=== PATIENT | female | born 1955 | race Caucasian/White ===

== ENCOUNTER 2016-11-28 12:01 | Day surgery (SDC) | payer OTHER ==
[~2016-11-28] VITALS: Ht 162.6 cm; Wt 110.0 kg
[~2016-11-28 12:01] MED LIST: ASPI-496 PO; BUPR150T6 PO; DOCU100C8 PO; HYDR-3138 PO; PIOG1TAB8 PO; SCOPOLAMINE PATCH, 1.5MG PATCH.TD72 TD ONE; SIMV20TA3 PO
[2016-11-28 12:48] VITALS: BP 125/72
[2016-11-28] MEDS ORDERED: LACTATED RINGERS 1,000 ML IV SCH (12:51)
[2016-11-28 13:18] LABS: ASPARTATE AMINO TRANSFERASE 16 U/L (15-37); BLOOD UREA NITROGEN 23 mg/dL (7-18)
[2016-11-28] MEDS ORDERED: SCOPOLAMINE PATCH, 1.5MG PATCH.TD72 TD ONE (14:24)
[2016-11-28] MEDS ORDERED: MIDAZOLAM 1 MG/ML, 2ML ONE (14:31)
[2016-11-28] MEDS ORDERED: FENTANYL PF 250 MCG/5ML ONE (14:31)
[2016-11-28] MEDS ORDERED: ONDANSETRON 2MG/ML, 2ML ONE (14:55)
[2016-11-28] MEDS ORDERED: CEFAZOLIN 1,000 MG ONE (14:55)
[2016-11-28] MEDS ORDERED: KETOROLAC 30 MG/1 ML ONE (14:55)
[2016-11-28] MEDS ORDERED: PROPOFOL 10 MG/ML, 50ML ONE (14:55)
[2016-11-28] MEDS ORDERED: BUPIVACAINE/PF-EPI 0.5% 1:200K ONE ×2 (15:02)
[2016-11-28] MEDS ORDERED: ACETAMINOPHEN 325 MG TABLET PO PRN (16:00)
[2016-11-28] MEDS ORDERED: hydrALAzine 20 MG/ML, 1ML IV PRN (16:00)
[2016-11-28] MEDS ORDERED: EPHEDRINE 50 MG/ML, 1ML IVPush PRN (16:00)
[2016-11-28] MEDS ORDERED: LABETALOL 5MG/ML, 20ML IV PRN (16:00)
[2016-11-28] MEDS ORDERED: KETOROLAC 30 MG/1 ML IV PRN (16:00)
[2016-11-28] MEDS ORDERED: OXYcodone 5 MG/5 ML ORAL.SOL UDC PO PRN (16:00)
[2016-11-28] MEDS ORDERED: MIDAZOLAM 1 MG/ML, 2ML IV PRN (16:00)
[2016-11-28] MEDS ORDERED: ONDANSETRON 2MG/ML, 2ML IVPush PRN (16:00)
[2016-11-28] MEDS ORDERED: FENTANYL PF 100 MCG/2ML IV PRN (16:00)
[2016-11-28] MEDS ORDERED: HYDROmorphone 1 MG/ML, 1ML IV PRN (16:00)
[2016-11-28] MEDS ORDERED: HYDROcodone/APAP 7.5-325MG/15ML UDC PO PRN (16:00)
[2016-11-28] MEDS ORDERED: MEPERIDINE/PF 25MG/0.5ML IVPush PRN (16:00)
[2016-11-28] MEDS ORDERED: PROMETHAZINE 25 MG/ML, 1ML IV PRN (16:00)
[2016-11-28] MEDS ORDERED: ACETAMINOPHEN 325 MG TABLET ONE (16:16)
[2016-11-28] MEDS ORDERED: ACETAMINOPHEN 650 MG/20.3 ML UDC ONE (16:16)
[2016-11-28] MEDS ORDERED: OXYcodone 5 MG/5 ML ORAL.SOL UDC ONE (16:17)
== END 2016-11-28 18:15 | disposition home or self-care (01) ==
LOC: OUT 12:01
PROVIDERS: ATTEND Obstetrics & Gynecology Gynecologic Oncology
DX: C51.2 Malignant neoplasm of clitoris (principal); N76.2 Acute vulvitis; E11.9 Type 2 diabetes mellitus without complications; F32.9 Major depressive disorder, single episode, unspecified; E66.9 Obesity, unspecified; Z68.41 Body mass index [BMI] 40.0-44.9, adult; Z79.84 Long term (current) use of oral hypoglycemic drugs; Z79.01 Long term (current) use of anticoagulants
CPT/HCPCS: 36415; 56605; 56606; 71010; 80053; 82962; 85025; 85610; 85730; 86850; 86900; 88304; 93005; C1729; J0690; J1885; J2250; J2405; J2704; J3010

== ENCOUNTER → 2016-12-24 | Outpatient (CLI) | payer OTHER ==
[~2016-12-24] MED LIST changes: +OXYC-223 PO; -SCOPOLAMINE PATCH, 1.5MG PATCH.TD72 TD ONE
[2016-12-24 16:46] LABS: ASPARTATE AMINO TRANSFERASE 15 U/L (15-37); BLOOD UREA NITROGEN 20 mg/dL (7-18)
== END | disposition home or self-care (01) ==
LOC: STAR 15:20
PROVIDERS: ATTEND Specialist
DX: Z01.818 Encounter for other preprocedural examination (principal); R79.1 Abnormal coagulation profile
CPT/HCPCS: 36415; 80053; 85025; 85610; 85730

== ENCOUNTER 2017-01-06 09:08 | Day surgery (SDC) | payer OTHER ==
[2016-12-24 16:09] VITALS: BP 128/64
[~2017-01-06] VITALS: Ht 162.6 cm; Wt 110.0 kg
[~2017-01-06 09:08] MED LIST changes: +BUPIVACAINE/PF 0.25% ONE; +EPINEPHRINE 1 MG/ML, 1ML ONE
[2017-01-06] MEDS ORDERED: LACTATED RINGERS 1,000 ML IV SCH (10:18)
[2017-01-06 10:21] VITALS: BP 128/64
[2017-01-06] MEDS ORDERED: LIDOCAINE 1%, 2ML SQ PRN (10:30)
[2017-01-06] MEDS ORDERED: SCOPOLAMINE PATCH, 1.5MG PATCH.TD72 TD ONE (13:13)
[2017-01-06] MEDS ORDERED: FENTANYL PF 250 MCG/5ML ONE (13:17)
[2017-01-06] MEDS ORDERED: MIDAZOLAM 1 MG/ML, 2ML ONE (13:19)
[2017-01-06] MEDS ORDERED: ONDANSETRON 2MG/ML, 2ML ONE (13:31)
[2017-01-06] MEDS ORDERED: PROPOFOL 10 MG/ML, 20ML ONE (13:31)
[2017-01-06] MEDS ORDERED: EPHEDRINE 50 MG/ML, 1ML IVPush PRN (14:30)
[2017-01-06] MEDS ORDERED: MEPERIDINE/PF 25MG/0.5ML IVPush PRN (14:30)
[2017-01-06] MEDS ORDERED: PROMETHAZINE 25 MG/ML, 1ML IV PRN (14:30)
[2017-01-06] MEDS ORDERED: HYDROcodone/APAP 7.5-325MG/15ML UDC PO PRN (14:30)
[2017-01-06] MEDS ORDERED: MIDAZOLAM 1 MG/ML, 2ML IV PRN (14:30)
[2017-01-06] MEDS ORDERED: ACETAMINOPHEN 325 MG TABLET PO PRN (14:30)
[2017-01-06] MEDS ORDERED: hydrALAzine 20 MG/ML, 1ML IV PRN (14:30)
[2017-01-06] MEDS ORDERED: OXYcodone 5 MG/5 ML ORAL.SOL UDC PO PRN (14:30)
[2017-01-06] MEDS ORDERED: LABETALOL 5MG/ML, 20ML IV PRN (14:30)
[2017-01-06] MEDS ORDERED: KETOROLAC 30 MG/1 ML IV PRN (14:30)
[2017-01-06] MEDS ORDERED: ONDANSETRON 2MG/ML, 2ML IVPush PRN (14:30)
[2017-01-06] MEDS ORDERED: PROMETHAZINE 25 MG/ML, 1ML ONE (14:50)
[2017-01-06] MEDS ORDERED: OXYcodone 5 MG/5 ML ORAL.SOL UDC ONE (14:50)
[2017-01-06] MEDS ORDERED: FENTANYL PF 100 MCG/2ML ONE (14:50)
[2017-01-06] MEDS ORDERED: HYDROmorphone 1 MG/ML, 1ML ONE ×2 (14:50→15:23)
[2017-01-06] MEDS ORDERED: KETOROLAC 30 MG/1 ML ONE (14:51)
[2017-01-06] MEDS: HYDROmorphone 1 MG/ML, 1ML IV PRN ×4 (14:55→15:34)
[2017-01-06] MEDS: FENTANYL PF 100 MCG/2ML IV PRN ×2 (15:08→15:15)
== END 2017-01-06 17:05 ==
LOC: OUT 09:08
PROVIDERS: ATTEND Specialist
DX: C51.2 Malignant neoplasm of clitoris (principal); E11.9 Type 2 diabetes mellitus without complications; F32.9 Major depressive disorder, single episode, unspecified; F41.9 Anxiety disorder, unspecified; E78.5 Hyperlipidemia, unspecified; Z98.890 Other specified postprocedural states; Z85.44 Personal history of malignant neoplasm of other female genital organs; Z79.82 Long term (current) use of aspirin
CPT/HCPCS: 58999; 82962; 88307; C1729; J0171; J1170; J1885; J2250; J2405; J2550; J2704; J3010; J3490; J7120

== ENCOUNTER 2017-01-28 10:56 | Inpatient (IN) | payer OTHER ==
[~2017-01-28] VITALS: Ht 162.6 cm; Wt 103.5 kg
[~2017-01-28 10:56] MED LIST changes: -BUPIVACAINE/PF 0.25% ONE; -EPINEPHRINE 1 MG/ML, 1ML ONE
[2017-01-28 13:45] VITALS: BP 115/69
[2017-01-28] MEDS ORDERED: PLEASE ENTER HEIGHT AND WEIGHT MC SCH (15:00)
[2017-01-28] MEDS: OXYcodone/APAP 7.5/325MG TABLET PO PRN ×2 (15:55→21:49)
[2017-01-28] MEDS ORDERED: CLOBETASOL PROPIONATE CRM 0.05%, 15GM TP PRN (16:00)
[2017-01-28] MEDS ORDERED: NYSTATIN CRM 15GM TP PRN (16:00)
[2017-01-28] MEDS ORDERED: OXYcodone/APAP 7.5/325MG TABLET PO PRN (16:00)
[2017-01-28] MEDS: VANCOMYCIN PMX 1GM/200ML 200 ML IV SCH (17:21)
[2017-01-28] MEDS: metFORMIN 500 MG TABLET PO SCH (17:21)
[2017-01-28 19:34] VITALS: BP 123/75
[2017-01-28] MEDS: SIMVASTATIN 10 MG TABLET PO SCH (20:56)
[2017-01-28] MEDS: CALCIUM ACETATE/ALUMINUM SULF PACKET TP SCH (21:00)
[2017-01-28] MEDS: LIDOCAINE GEL 2%, 5ML TP SCH (21:00)
[2017-01-29 02:17] VITALS: BP 145/70
[2017-01-29] MEDS: OXYcodone/APAP 7.5/325MG TABLET PO PRN ×4 (03:39→20:27)
[2017-01-29] MEDS: VANCOMYCIN PMX 1GM/200ML 200 ML IV SCH ×2 (03:39→15:51)
[2017-01-29] MEDS ORDERED: LIDOCAINE GEL 2%, 5ML ONE (06:51)
[2017-01-29] MEDS ORDERED: SILVER SULF. CRM 1% , 25GM ONE (06:51)
[2017-01-29] MEDS ORDERED: EPINEPHRINE 1 MG/ML, 1ML ONE (06:51)
[2017-01-29] MEDS ORDERED: BUPIVACAINE/PF 0.25% ONE (06:51)
[2017-01-29] MEDS ORDERED: MIDAZOLAM 1 MG/ML, 2ML ONE ×2 (07:18→08:39)
[2017-01-29] MEDS ORDERED: FENTANYL PF 100 MCG/2ML ONE ×2 (07:19→08:30)
[2017-01-29] MEDS ORDERED: SCOPOLAMINE PATCH, 1.5MG PATCH.TD72 TD ONE ×2 (07:25)
[2017-01-29] MEDS ORDERED: ONDANSETRON 2MG/ML, 2ML ONE (07:32)
[2017-01-29] MEDS ORDERED: PROPOFOL 10 MG/ML, 20ML ONE (07:32)
[2017-01-29] MEDS ORDERED: KETOROLAC 30 MG/1 ML ONE (07:32)
[2017-01-29] MEDS ORDERED: DEXAMETHASONE 4 MG/ML, 1ML ONE (07:32)
[2017-01-29] MEDS ORDERED: FENTANYL PF 250 MCG/5ML ONE (07:56)
[2017-01-29] MEDS ORDERED: ALBUTEROL SULFATE 2.5 MG/3 ML NPPB PRN (08:00)
[2017-01-29] MEDS ORDERED: OXYcodone 5 MG/5 ML ORAL.SOL UDC PO PRN (08:00)
[2017-01-29] MEDS ORDERED: PROMETHAZINE 25 MG/ML, 1ML IV PRN (08:00)
[2017-01-29] MEDS ORDERED: hydrALAzine 20 MG/ML, 1ML IV PRN (08:00)
[2017-01-29] MEDS ORDERED: METOPROLOL 1 MG/ML, 5ML IV PRN (08:00)
[2017-01-29] MEDS ORDERED: MEPERIDINE/PF 25MG/0.5ML IVPush PRN (08:00)
[2017-01-29] MEDS ORDERED: ACETAMINOPHEN 325 MG TABLET PO PRN (08:00)
[2017-01-29] MEDS ORDERED: MIDAZOLAM 1 MG/ML, 2ML IV PRN (08:00)
[2017-01-29] MEDS ORDERED: OXYcodone 5 MG/5 ML ORAL.SOL UDC ONE (08:30)
[2017-01-29] MEDS: FENTANYL PF 100 MCG/2ML IV PRN ×2 (08:31→08:36)
[2017-01-29] MEDS ORDERED: HYDROmorphone 2 MG/ML, 1ML ONE (08:34)
[2017-01-29] MEDS: HYDROmorphone 1 MG/ML, 1ML IV PRN ×3 (08:39→09:08)
[2017-01-29] MEDS: LIDOCAINE GEL 2%, 5ML TP SCH ×2 (09:00→21:00)
[2017-01-29] MEDS: CALCIUM ACETATE/ALUMINUM SULF PACKET TP SCH ×2 (09:00→21:00)
[2017-01-29] MEDS: BUPROPION 75 MG TABLET PO SCH (10:28)
[2017-01-29] MEDS: metFORMIN 500 MG TABLET PO SCH ×2 (10:28→17:46)
[2017-01-29 14:20] VITALS: BP 117/55
[2017-01-29 19:40] VITALS: BP 102/65
[2017-01-29] MEDS: SIMVASTATIN 10 MG TABLET PO SCH (20:27)
[2017-01-30] MEDS: OXYcodone/APAP 7.5/325MG TABLET PO PRN ×2 (02:05→07:51)
[2017-01-30 03:10] VITALS: BP 124/59
[2017-01-30] MEDS: VANCOMYCIN PMX 1GM/200ML 200 ML IV SCH ×2 (04:07→16:03)
[2017-01-30 07:36] VITALS: BP 135/74
[2017-01-30] MEDS: metFORMIN 500 MG TABLET PO SCH ×3 (07:51→17:16)
[2017-01-30] MEDS: BUPROPION 75 MG TABLET PO SCH (07:51)
[2017-01-30] MEDS: LIDOCAINE GEL 2%, 5ML TP SCH ×2 (07:52→20:22)
[2017-01-30] MEDS: CALCIUM ACETATE/ALUMINUM SULF PACKET TP SCH ×2 (07:52→20:22)
[2017-01-30] MEDS ORDERED: ENOXAPARIN 40 MG/0.4 ML SQ ONE (10:00)
[2017-01-30] MEDS ORDERED: MORPHINE SULFATE 4 MG/ML, 1ML IV PRN (10:00)
[2017-01-30 11:35] LABS: HEMATOCRIT 32.6 % (34.6-47.8); HEMOGLOBIN 10.6 g/dL (11.7-16.4); WHITE BLOOD COUNT 10.2 x10^3/uL (3.4-10)
[2017-01-30 11:42] LABS: BLOOD UREA NITROGEN 15 mg/dL (7-18)
[2017-01-30] MEDS: OXYcodone/APAP 10/325MG TABLET PO PRN ×4 (11:51→23:57)
[2017-01-30] MEDS: HUMAN SQ-INSULIN SCH ×2 (11:54→18:00)
[2017-01-30] MEDS: INSULIN REGULAR SQ-INSULIN SCH ×2 (11:54→18:00)
[2017-01-30 13:36] VITALS: BP 94/60
[2017-01-30] MEDS ORDERED: VANCOMYCIN PER PHARMACY MC PRN (16:00)
[2017-01-30] MEDS ORDERED: PHARMACOKINETIC MONITORING MC PRN (16:00)
[2017-01-30 19:25] VITALS: BP 113/73
[2017-01-30] MEDS: SIMVASTATIN 10 MG TABLET PO SCH (19:59)
[2017-01-31 02:20] VITALS: BP 121/62
[2017-01-31] MEDS: OXYcodone/APAP 10/325MG TABLET PO PRN ×4 (04:06→21:03)
[2017-01-31] MEDS: VANCOMYCIN PMX 1GM/200ML 200 ML IV SCH (04:27)
[2017-01-31] MEDS: HUMAN SQ-INSULIN SCH ×5 (06:00→21:18)
[2017-01-31] MEDS: INSULIN REGULAR SQ-INSULIN SCH ×5 (06:00→21:18)
[2017-01-31 06:46] VITALS: BP 130/71
[2017-01-31] MEDS: metFORMIN 500 MG TABLET PO SCH ×3 (07:58→16:53)
[2017-01-31] MEDS: BUPROPION 75 MG TABLET PO SCH (07:58)
[2017-01-31] MEDS: CALCIUM ACETATE/ALUMINUM SULF PACKET TP SCH ×2 (08:00→18:15)
[2017-01-31] MEDS: LIDOCAINE GEL 2%, 5ML TP SCH ×2 (08:00→18:15)
[2017-01-31] MEDS ORDERED: MIDAZOLAM 1 MG/ML, 2ML ONE ×2 (11:15→11:58)
[2017-01-31] MEDS ORDERED: FENTANYL PF 250 MCG/5ML ONE (11:15)
[2017-01-31] MEDS ORDERED: PROPOFOL 10 MG/ML, 20ML ONE (11:20)
[2017-01-31] MEDS ORDERED: DEXAMETHASONE 4 MG/ML, 1ML ONE (11:20)
[2017-01-31] MEDS ORDERED: ONDANSETRON 2MG/ML, 2ML ONE (11:20)
[2017-01-31] MEDS ORDERED: HYDROmorphone 2 MG/ML, 1ML ONE ×2 (11:37→11:58)
[2017-01-31] MEDS ORDERED: OXYcodone 5 MG/5 ML ORAL.SOL UDC ONE (11:58)
[2017-01-31] MEDS ORDERED: FENTANYL PF 100 MCG/2ML ONE (11:58)
[2017-01-31] MEDS ORDERED: ONDANSETRON 2MG/ML, 2ML IVPush PRN (12:00)
[2017-01-31] MEDS ORDERED: MIDAZOLAM 1 MG/ML, 2ML IV PRN (12:00)
[2017-01-31] MEDS ORDERED: MEPERIDINE/PF 25MG/0.5ML IVPush PRN (12:00)
[2017-01-31] MEDS ORDERED: ALBUTEROL/IPRATROPIUM 2.5MG/0.5MG, 3 ML NPPB PRN (12:00)
[2017-01-31] MEDS ORDERED: OXYcodone 5 MG/5 ML ORAL.SOL UDC PO PRN (12:00)
[2017-01-31] MEDS ORDERED: PROMETHAZINE 25 MG/ML, 1ML IV PRN (12:00)
[2017-01-31] MEDS ORDERED: ACETAMINOPHEN 325 MG TABLET PO PRN (12:00)
[2017-01-31] MEDS ORDERED: hydrALAzine 20 MG/ML, 1ML IV PRN (12:00)
[2017-01-31] MEDS: HYDROmorphone 1 MG/ML, 1ML IV PRN ×4 (12:18→12:48)
[2017-01-31] MEDS ORDERED: ACETAMINOPHEN 650 MG/20.3 ML UDC ONE (12:22)
[2017-01-31] MEDS: FENTANYL PF 100 MCG/2ML IV PRN ×2 (12:23→12:40)
[2017-01-31] MEDS: LABETALOL 5MG/ML, 20ML IV PRN ×2 (12:39→13:02)
[2017-01-31 13:46] VITALS: BP 124/62
[2017-01-31] MEDS: VANCOMYCIN 1,500 MG in SODIUM CHLORIDE 0.9% 250 ML IV SCH (16:49)
[2017-01-31 18:36] VITALS: BP 99/50
[2017-01-31] MEDS: SIMVASTATIN 10 MG TABLET PO SCH (21:03)
[2017-02-01] MEDS: OXYcodone/APAP 10/325MG TABLET PO PRN ×6 (01:40→21:26)
[2017-02-01 01:54] VITALS: BP 112/60
[2017-02-01] MEDS: VANCOMYCIN 1,500 MG in SODIUM CHLORIDE 0.9% 250 ML IV SCH ×2 (02:59→15:52)
[2017-02-01] MEDS: HUMAN SQ-INSULIN SCH ×4 (05:51→21:59)
[2017-02-01] MEDS: INSULIN REGULAR SQ-INSULIN SCH ×4 (05:51→21:59)
[2017-02-01] MEDS: LIDOCAINE GEL 2%, 5ML TP SCH ×2 (07:32→21:00)
[2017-02-01] MEDS: CALCIUM ACETATE/ALUMINUM SULF PACKET TP SCH ×2 (07:32→21:00)
[2017-02-01 07:53] VITALS: BP 123/60
[2017-02-01] MEDS: metFORMIN 500 MG TABLET PO SCH ×2 (07:53→17:38)
[2017-02-01] MEDS: BUPROPION 75 MG TABLET PO SCH (09:24)
[2017-02-01 13:30] VITALS: BP 104/54
[2017-02-01] MEDS ORDERED: MAGNESIUM HYDROXIDE 8%, 30ML UDC PO ONE (15:30)
[2017-02-01] MEDS ORDERED: CLOBETASOL PROPIONATE CRM 0.05%, 15GM TP PRN (17:00)
[2017-02-01] MEDS ORDERED: NYSTATIN CRM 15GM TP PRN (17:00)
[2017-02-01] MEDS ORDERED: VANCOMYCIN PER PHARMACY MC PRN (17:00)
[2017-02-01] MEDS ORDERED: PHARMACOKINETIC MONITORING MC PRN (17:00)
[2017-02-01 19:02] VITALS: BP 130/66
[2017-02-01] MEDS: SIMVASTATIN 10 MG TABLET PO SCH (21:26)
[2017-02-02] MEDS: OXYcodone/APAP 10/325MG TABLET PO PRN ×6 (01:27→21:41)
[2017-02-02 01:30] VITALS: BP 136/66
[2017-02-02] MEDS: VANCOMYCIN 1,500 MG in SODIUM CHLORIDE 0.9% 250 ML IV SCH ×2 (02:59→16:07)
[2017-02-02] MEDS: INSULIN REGULAR SQ-INSULIN SCH ×4 (03:28→23:57)
[2017-02-02] MEDS: HUMAN SQ-INSULIN SCH ×4 (03:28→23:57)
[2017-02-02 07:07] VITALS: BP 150/74
[2017-02-02] MEDS ORDERED: OXYcodone/APAP 10/325MG TABLET PO PRN (08:00)
[2017-02-02] MEDS: CALCIUM ACETATE/ALUMINUM SULF PACKET TP SCH ×2 (09:00→21:00)
[2017-02-02] MEDS: BUPROPION 75 MG TABLET PO SCH (09:00)
[2017-02-02] MEDS: metFORMIN 500 MG TABLET PO SCH ×2 (09:00→16:07)
[2017-02-02] MEDS: LIDOCAINE GEL 2%, 5ML TP SCH ×2 (09:00→21:00)
[2017-02-02 13:42] VITALS: BP 118/73
[2017-02-02] MEDS: MAGNESIUM HYDROXIDE 8%, 30ML UDC PO PRN (14:48)
[2017-02-02 15:39] LABS: HEMATOCRIT 35.4 % (34.6-47.8); HEMOGLOBIN 11.5 g/dL (11.7-16.4)
[2017-02-02 15:47] LABS: BLOOD UREA NITROGEN 17 mg/dL (7-18)
[2017-02-02 18:40] VITALS: BP 129/68
[2017-02-02] MEDS: SIMVASTATIN 10 MG TABLET PO SCH (21:41)
[2017-02-03] MEDS: OXYcodone/APAP 10/325MG TABLET PO PRN ×5 (01:48→22:08)
[2017-02-03 02:21] VITALS: BP 141/62
[2017-02-03 03:56] LABS: BLOOD UREA NITROGEN 16 mg/dL (7-18)
[2017-02-03] MEDS: INSULIN REGULAR SQ-INSULIN SCH ×3 (06:00→18:00)
[2017-02-03] MEDS: HUMAN SQ-INSULIN SCH ×3 (06:00→18:00)
[2017-02-03 06:07] LABS: HEMATOCRIT 35.3 % (34.6-47.8); HEMOGLOBIN 11.5 g/dL (11.7-16.4); WHITE BLOOD COUNT 9.9 x10^3/uL (3.4-10)
[2017-02-03 07:29] VITALS: BP 147/80
[2017-02-03] MEDS: metFORMIN 500 MG TABLET PO SCH ×2 (08:00→17:07)
[2017-02-03] MEDS: CALCIUM ACETATE/ALUMINUM SULF PACKET TP SCH ×2 (09:00→19:47)
[2017-02-03] MEDS: LIDOCAINE GEL 2%, 5ML TP SCH ×2 (09:00→19:47)
[2017-02-03] MEDS ORDERED: FENTANYL PF 100 MCG/2ML ONE (09:13)
[2017-02-03] MEDS ORDERED: PROPOFOL 10 MG/ML, 20ML ONE (09:15)
[2017-02-03] MEDS ORDERED: METOCLOPRAMIDE 5 MG/ML, 2ML ONE (09:15)
[2017-02-03] MEDS ORDERED: DEXAMETHASONE 4 MG/ML, 1ML ONE (09:15)
[2017-02-03] MEDS ORDERED: ONDANSETRON 2MG/ML, 2ML ONE ×2 (09:15→11:34)
[2017-02-03] MEDS ORDERED: LIDOCAINE 2% 100MG/5ML SYRINGE ONE (09:15)
[2017-02-03] MEDS ORDERED: LABETALOL 5MG/ML, 20ML IV PRN (10:00)
[2017-02-03] MEDS ORDERED: FENTANYL PF 100 MCG/2ML IV PRN (10:00)
[2017-02-03] MEDS ORDERED: hydrALAzine 20 MG/ML, 1ML IV PRN (10:00)
[2017-02-03] MEDS ORDERED: ONDANSETRON 2MG/ML, 2ML IVPush PRN (10:00)
[2017-02-03] MEDS ORDERED: LORazepam 2 MG/ML, 1ML IVPush PRN (10:00)
[2017-02-03] MEDS ORDERED: OXYcodone 5 MG/5 ML ORAL.SOL UDC PO PRN (10:00)
[2017-02-03] MEDS ORDERED: MIDAZOLAM 1 MG/ML, 2ML IV PRN (10:00)
[2017-02-03] MEDS ORDERED: PROMETHAZINE 25 MG/ML, 1ML IV PRN (10:00)
[2017-02-03] MEDS ORDERED: HYDROmorphone 2 MG/ML, 1ML ONE ×2 (10:02→11:15)
[2017-02-03] MEDS ORDERED: HYDROmorphone 1 MG/ML, 1ML ONE (11:03)
[2017-02-03] MEDS ORDERED: OXYcodone 5 MG/5 ML ORAL.SOL UDC ONE (11:03)
[2017-02-03] MEDS: HYDROmorphone 1 MG/ML, 1ML IV PRN ×5 (11:06→11:35)
[2017-02-03 14:22] VITALS: BP 138/76
[2017-02-03] MEDS: BUPROPION 75 MG TABLET PO SCH (14:36)
[2017-02-03] MEDS: MAGNESIUM HYDROXIDE 8%, 30ML UDC PO PRN (17:07)
[2017-02-03] MEDS: SIMVASTATIN 10 MG TABLET PO SCH (19:47)
[2017-02-03 20:13] VITALS: BP 122/75
[2017-02-04] MEDS: OXYcodone/APAP 10/325MG TABLET PO PRN ×6 (02:09→22:02)
[2017-02-04 02:10] VITALS: BP 114/59
[2017-02-04] MEDS: HUMAN SQ-INSULIN SCH ×5 (05:24→20:41)
[2017-02-04] MEDS: INSULIN REGULAR SQ-INSULIN SCH ×5 (05:24→20:41)
[2017-02-04 08:00] VITALS: BP 103/62
[2017-02-04] MEDS ORDERED: ENOXAPARIN 40 MG/0.4 ML SQ ONE (08:30)
[2017-02-04] MEDS: metFORMIN 500 MG TABLET PO SCH ×2 (08:57→17:53)
[2017-02-04] MEDS: BUPROPION 75 MG TABLET PO SCH (08:57)
[2017-02-04] MEDS: MAGNESIUM HYDROXIDE 8%, 30ML UDC PO PRN ×2 (10:49→17:53)
[2017-02-04 14:00] VITALS: BP 109/54
[2017-02-04 19:35] VITALS: BP 128/80
[2017-02-04] MEDS: SIMVASTATIN 10 MG TABLET PO SCH (22:02)
[2017-02-05] MEDS: OXYcodone/APAP 10/325MG TABLET PO PRN ×5 (01:59→20:37)
[2017-02-05 03:59] VITALS: BP 126/91
[2017-02-05] MEDS: INSULIN REGULAR SQ-INSULIN SCH ×3 (04:30→18:00)
[2017-02-05] MEDS: HUMAN SQ-INSULIN SCH ×3 (04:30→18:00)
[2017-02-05 08:12] VITALS: BP 124/76
[2017-02-05] MEDS: BUPROPION 75 MG TABLET PO SCH (09:17)
[2017-02-05] MEDS: metFORMIN 500 MG TABLET PO SCH ×2 (09:17→20:50)
[2017-02-05] MEDS ORDERED: MAGNESIUM HYDROXIDE 8%, 30ML UDC PO PRN (12:30)
[2017-02-05 13:32] VITALS: BP 120/71
[2017-02-05] MEDS ORDERED: MIDAZOLAM 1 MG/ML, 2ML ONE (17:39)
[2017-02-05] MEDS ORDERED: FENTANYL PF 250 MCG/5ML ONE (17:39)
[2017-02-05] MEDS ORDERED: ONDANSETRON 2MG/ML, 2ML ONE (18:18)
[2017-02-05] MEDS ORDERED: PROPOFOL 10 MG/ML, 20ML ONE (18:18)
[2017-02-05] MEDS ORDERED: MIDAZOLAM 1 MG/ML, 2ML IV PRN (19:00)
[2017-02-05] MEDS ORDERED: LABETALOL 5MG/ML, 20ML IV PRN (19:00)
[2017-02-05] MEDS ORDERED: PROMETHAZINE 25 MG/ML, 1ML IV PRN (19:00)
[2017-02-05] MEDS ORDERED: ACETAMINOPHEN 325 MG TABLET PO PRN (19:00)
[2017-02-05] MEDS ORDERED: hydrALAzine 20 MG/ML, 1ML IV PRN (19:00)
[2017-02-05] MEDS ORDERED: OXYcodone 5 MG/5 ML ORAL.SOL UDC PO PRN (19:00)
[2017-02-05] MEDS ORDERED: HYDROcodone/APAP 7.5-325MG/15ML UDC PO PRN (19:00)
[2017-02-05] MEDS ORDERED: ONDANSETRON 2MG/ML, 2ML IVPush PRN (19:00)
[2017-02-05] MEDS ORDERED: EPHEDRINE 50 MG/ML, 1ML IVPush PRN (19:00)
[2017-02-05] MEDS ORDERED: ALBUTEROL SULFATE 2.5 MG/3 ML NPPB PRN (19:00)
[2017-02-05] MEDS ORDERED: METOPROLOL 1 MG/ML, 5ML IV PRN (19:00)
[2017-02-05] MEDS ORDERED: MEPERIDINE/PF 25MG/0.5ML IVPush PRN (19:00)
[2017-02-05] MEDS ORDERED: FENTANYL PF 100 MCG/2ML IV PRN (19:00)
[2017-02-05] MEDS ORDERED: HYDROmorphone 2 MG/ML, 1ML ONE (19:06)
[2017-02-05] MEDS: HYDROmorphone 1 MG/ML, 1ML IV PRN ×6 (19:15→19:44)
[2017-02-05] MEDS ORDERED: MEPERIDINE/PF 50 MG/ML ONE (19:30)
[2017-02-05 20:30] VITALS: BP 127/53
[2017-02-05] MEDS: SIMVASTATIN 10 MG TABLET PO SCH (20:50)
[2017-02-06] MEDS: INSULIN REGULAR SQ-INSULIN SCH ×5 (00:01→23:27)
[2017-02-06] MEDS: HUMAN SQ-INSULIN SCH ×5 (00:01→23:27)
[2017-02-06] MEDS: OXYcodone/APAP 10/325MG TABLET PO PRN ×6 (00:19→20:28)
[2017-02-06 01:04] VITALS: BP 115/49
[2017-02-06 07:19] VITALS: BP 110/62
[2017-02-06] MEDS: metFORMIN 500 MG TABLET PO SCH ×2 (07:41→16:35)
[2017-02-06] MEDS: BUPROPION 75 MG TABLET PO SCH (08:27)
[2017-02-06] MEDS ORDERED: ENOXAPARIN 40 MG/0.4 ML SQ ONE (09:00)
[2017-02-06 14:04] VITALS: BP 101/64
[2017-02-06 20:22] VITALS: BP 131/83
[2017-02-06] MEDS: SIMVASTATIN 10 MG TABLET PO SCH (20:28)
[2017-02-07] MEDS: OXYcodone/APAP 10/325MG TABLET PO PRN ×5 (00:14→20:09)
[2017-02-07 02:58] VITALS: BP 116/69
[2017-02-07] MEDS: HUMAN SQ-INSULIN SCH ×3 (05:29→17:30)
[2017-02-07] MEDS: INSULIN REGULAR SQ-INSULIN SCH ×3 (05:29→17:30)
[2017-02-07 08:00] VITALS: BP 132/76
[2017-02-07] MEDS: metFORMIN 500 MG TABLET PO SCH ×2 (08:00→16:52)
[2017-02-07] MEDS: BUPROPION 75 MG TABLET PO SCH (09:36)
[2017-02-07] MEDS ORDERED: ENOXAPARIN 40 MG/0.4 ML SQ SCH (13:00)
[2017-02-07] MEDS: LORazepam 1MG TABLET PO PRN (13:06)
[2017-02-07] MEDS: MORPHINE SULFATE 4 MG/ML, 1ML IV PRN (13:06)
[2017-02-07 14:00] VITALS: BP 109/70
[2017-02-07] MEDS ORDERED: BISACODYL 10 MG SUPP PR ONE (18:00)
[2017-02-07] MEDS: SIMVASTATIN 10 MG TABLET PO SCH (20:10)
[2017-02-07 20:37] VITALS: BP 129/78
[2017-02-08] MEDS: OXYcodone/APAP 10/325MG TABLET PO PRN ×7 (00:23→20:21)
[2017-02-08 02:58] VITALS: BP 114/79
[2017-02-08] MEDS: HUMAN SQ-INSULIN SCH ×4 (04:08→18:00)
[2017-02-08] MEDS: INSULIN REGULAR SQ-INSULIN SCH ×4 (04:08→18:00)
[2017-02-08 07:01] VITALS: BP 132/79
[2017-02-08] MEDS: metFORMIN 500 MG TABLET PO SCH ×2 (08:19→16:37)
[2017-02-08] MEDS: BUPROPION 75 MG TABLET PO SCH (08:29)
[2017-02-08] MEDS: morphine SULFATE ORAL.CONC 20 MG/ML PO PRN (10:48)
[2017-02-08] MEDS: LORazepam 1MG TABLET PO PRN (10:48)
[2017-02-08 13:11] VITALS: BP 95/58
[2017-02-08] MEDS: SIMVASTATIN 10 MG TABLET PO SCH (20:21)
[2017-02-08 20:25] VITALS: BP 135/53
[2017-02-09] MEDS: OXYcodone/APAP 10/325MG TABLET PO PRN ×7 (00:15→20:29)
[2017-02-09 02:11] VITALS: BP 127/69
[2017-02-09] MEDS: HUMAN SQ-INSULIN SCH ×4 (06:00→17:33)
[2017-02-09] MEDS: INSULIN REGULAR SQ-INSULIN SCH ×4 (06:00→17:33)
[2017-02-09 06:32] VITALS: BP 117/68
[2017-02-09] MEDS: BUPROPION 75 MG TABLET PO SCH (08:20)
[2017-02-09] MEDS: metFORMIN 500 MG TABLET PO SCH ×2 (08:20→16:46)
[2017-02-09 13:52] VITALS: BP 109/51
[2017-02-09] MEDS: MORPHINE SULFATE 4 MG/ML, 1ML IV PRN (17:44)
[2017-02-09] MEDS: morphine SULFATE ORAL.CONC 20 MG/ML PO PRN (17:50)
[2017-02-09 19:15] VITALS: BP 101/64
[2017-02-09] MEDS: SIMVASTATIN 10 MG TABLET PO SCH (20:31)
[2017-02-10] MEDS: OXYcodone/APAP 10/325MG TABLET PO PRN ×5 (00:23→17:02)
[2017-02-10 02:00] VITALS: BP 113/69
[2017-02-10] MEDS: INSULIN REGULAR SQ-INSULIN SCH ×2 (05:48)
[2017-02-10] MEDS: HUMAN SQ-INSULIN SCH ×2 (05:48)
[2017-02-10 07:25] VITALS: BP 118/70
[2017-02-10] MEDS: BUPROPION 75 MG TABLET PO SCH (08:43)
[2017-02-10] MEDS: metFORMIN 500 MG TABLET PO SCH (08:43)
[2017-02-10] MEDS ORDERED: OXYC-229 PO (15:08)
[2017-02-10] MEDS ORDERED: ONDA4TAB10 PO (15:08)
== END 2017-02-10 17:15 | disposition home health service (06) | DRG 902 ==
LOC: 3NW 13:58 → 3NE 01-30 06:08 → 3NW 01-30 06:08
PROVIDERS: ADMIT Specialist; ATTEND Specialist
PROC: 0JBC0ZZ Excision of Pelvic Region Subcutaneous Tissue and Fascia, Open Approach (ICD-10-PCS; principal; 2017-01-29 07:30)
DX: T81.30XA Disruption of wound, unspecified, initial encounter (principal); I96 Gangrene, not elsewhere classified; E11.9 Type 2 diabetes mellitus without complications; L90.0 Lichen sclerosus et atrophicus; Z85.44 Personal history of malignant neoplasm of other female genital organs; Z92.3 Personal history of irradiation
CPT/HCPCS: 36415; 80048; 80202; 82962; 85025; 85610; 88305; J0171; J1100; J1170; J1650; J1815; J1885; J2175; J2250; J2405; J2704; J3010; J3370; J3490; J2765; J7050

== ENCOUNTER → 2017-02-11 | Outpatient (CLI) | payer OTHER ==
[~2017-02-11] MED LIST changes: +DOCU100C33 PO; -DOCU100C8 PO; -HYDR-3138 PO; +HYDR-3237 PO; +ONDA4TAB10 PO; -OXYC-223 PO; +OXYC-306 PO; +OXYC-307 PO; +PIOG1TAB PO; -PIOG1TAB8 PO
== END | disposition home or self-care (01) ==
LOC: WOUND 10:21
PROVIDERS: ATTEND Internal Medicine
DX: T81.31XD Disruption of external operation (surgical) wound, not elsewhere classified, subsequent encounter (principal); E78.5 Hyperlipidemia, unspecified; F41.9 Anxiety disorder, unspecified; E11.8 Type 2 diabetes mellitus with unspecified complications; I10 Essential (primary) hypertension; F32.9 Major depressive disorder, single episode, unspecified; Z85.44 Personal history of malignant neoplasm of other female genital organs; Z87.891 Personal history of nicotine dependence; Z79.82 Long term (current) use of aspirin; Y83.8 Other surgical procedures as the cause of abnormal reaction of the patient, or of later complication, without mention of misadventure at the time of the procedure
CPT/HCPCS: 97597; 99215

== ENCOUNTER → 2017-02-18 | Outpatient (CLI) | payer OTHER | END | disposition home or self-care (01) | LOC: WOUND 09:30 | PROVIDERS: ATTEND Internal Medicine | DX: T81.31XD Disruption of external operation (surgical) wound, not elsewhere classified, subsequent encounter (principal); E11.52 Type 2 diabetes mellitus with diabetic peripheral angiopathy with gangrene; F41.9 Anxiety disorder, unspecified; I10 Essential (primary) hypertension; E78.5 Hyperlipidemia, unspecified; Z79.82 Long term (current) use of aspirin; F32.9 Major depressive disorder, single episode, unspecified; Z85.44 Personal history of malignant neoplasm of other female genital organs; Z87.891 Personal history of nicotine dependence; Y83.8 Other surgical procedures as the cause of abnormal reaction of the patient, or of later complication, without mention of misadventure at the time of the procedure | CPT/HCPCS: 97597 ==

== ENCOUNTER → 2017-02-26 | Outpatient (CLI) | payer OTHER | END | disposition home or self-care (01) | LOC: WOUND 11:12 | PROVIDERS: ATTEND Internal Medicine | DX: T81.31XD Disruption of external operation (surgical) wound, not elsewhere classified, subsequent encounter (principal); F41.9 Anxiety disorder, unspecified; I10 Essential (primary) hypertension; E78.5 Hyperlipidemia, unspecified; F32.9 Major depressive disorder, single episode, unspecified; E11.52 Type 2 diabetes mellitus with diabetic peripheral angiopathy with gangrene; Z85.44 Personal history of malignant neoplasm of other female genital organs; Z87.891 Personal history of nicotine dependence; Z79.82 Long term (current) use of aspirin; Y83.8 Other surgical procedures as the cause of abnormal reaction of the patient, or of later complication, without mention of misadventure at the time of the procedure | CPT/HCPCS: 11042 ==

== ENCOUNTER → 2017-03-11 | Outpatient (CLI) | payer OTHER | END | disposition home or self-care (01) | LOC: WOUND 10:05 | PROVIDERS: ATTEND Internal Medicine | DX: T81.31XD Disruption of external operation (surgical) wound, not elsewhere classified, subsequent encounter (principal); F41.9 Anxiety disorder, unspecified; E11.8 Type 2 diabetes mellitus with unspecified complications; I10 Essential (primary) hypertension; E78.5 Hyperlipidemia, unspecified; E11.52 Type 2 diabetes mellitus with diabetic peripheral angiopathy with gangrene; F32.9 Major depressive disorder, single episode, unspecified; Z85.44 Personal history of malignant neoplasm of other female genital organs; Z87.891 Personal history of nicotine dependence; Z79.82 Long term (current) use of aspirin; Y83.8 Other surgical procedures as the cause of abnormal reaction of the patient, or of later complication, without mention of misadventure at the time of the procedure | CPT/HCPCS: 11042 ==

== ENCOUNTER → 2017-03-18 | Outpatient (CLI) | payer OTHER | END | disposition home or self-care (01) | LOC: WOUND 10:57 | PROVIDERS: ATTEND Internal Medicine | DX: T81.31XD Disruption of external operation (surgical) wound, not elsewhere classified, subsequent encounter (principal); E11.8 Type 2 diabetes mellitus with unspecified complications; F41.9 Anxiety disorder, unspecified; I10 Essential (primary) hypertension; E78.5 Hyperlipidemia, unspecified; F32.9 Major depressive disorder, single episode, unspecified; E11.52 Type 2 diabetes mellitus with diabetic peripheral angiopathy with gangrene; Z85.44 Personal history of malignant neoplasm of other female genital organs; Z87.891 Personal history of nicotine dependence; Z79.82 Long term (current) use of aspirin; Y83.8 Other surgical procedures as the cause of abnormal reaction of the patient, or of later complication, without mention of misadventure at the time of the procedure | CPT/HCPCS: 11042 ==

== ENCOUNTER → 2017-03-25 | Outpatient (CLI) | payer OTHER | END | disposition home or self-care (01) | LOC: WOUND 09:15 | PROVIDERS: ATTEND Internal Medicine | DX: T81.31XD Disruption of external operation (surgical) wound, not elsewhere classified, subsequent encounter (principal); E11.8 Type 2 diabetes mellitus with unspecified complications; F41.9 Anxiety disorder, unspecified; I10 Essential (primary) hypertension; E78.5 Hyperlipidemia, unspecified; F32.9 Major depressive disorder, single episode, unspecified; E11.52 Type 2 diabetes mellitus with diabetic peripheral angiopathy with gangrene; Z85.44 Personal history of malignant neoplasm of other female genital organs; Z87.891 Personal history of nicotine dependence; Z79.82 Long term (current) use of aspirin; Y83.8 Other surgical procedures as the cause of abnormal reaction of the patient, or of later complication, without mention of misadventure at the time of the procedure | CPT/HCPCS: 97597 ==

== ENCOUNTER → 2017-04-02 | Outpatient (CLI) | payer OTHER | END | disposition home or self-care (01) | LOC: WOUND 09:53 | PROVIDERS: ATTEND Specialist | DX: T81.31XD Disruption of external operation (surgical) wound, not elsewhere classified, subsequent encounter (principal); E11.52 Type 2 diabetes mellitus with diabetic peripheral angiopathy with gangrene; C52 Malignant neoplasm of vagina; F41.9 Anxiety disorder, unspecified; I10 Essential (primary) hypertension; E78.5 Hyperlipidemia, unspecified; F32.1 Major depressive disorder, single episode, moderate; Z87.891 Personal history of nicotine dependence; Y83.8 Other surgical procedures as the cause of abnormal reaction of the patient, or of later complication, without mention of misadventure at the time of the procedure | CPT/HCPCS: 97602 ==

== ENCOUNTER → 2017-04-09 | Outpatient (CLI) | payer OTHER | END | disposition home or self-care (01) | LOC: WOUND 09:23 | PROVIDERS: ATTEND Internal Medicine | DX: T81.31XD Disruption of external operation (surgical) wound, not elsewhere classified, subsequent encounter (principal); E11.52 Type 2 diabetes mellitus with diabetic peripheral angiopathy with gangrene; F41.9 Anxiety disorder, unspecified; I10 Essential (primary) hypertension; E78.5 Hyperlipidemia, unspecified; Z87.891 Personal history of nicotine dependence; Y83.8 Other surgical procedures as the cause of abnormal reaction of the patient, or of later complication, without mention of misadventure at the time of the procedure | CPT/HCPCS: 11042; 99214 ==

== ENCOUNTER → 2017-04-15 | Outpatient (CLI) | payer OTHER | END | disposition home or self-care (01) | LOC: WOUND 14:37 | PROVIDERS: ATTEND Internal Medicine Cardiovascular Disease | DX: T81.31XD Disruption of external operation (surgical) wound, not elsewhere classified, subsequent encounter (principal); C52 Malignant neoplasm of vagina; E11.69 Type 2 diabetes mellitus with other specified complication; F41.9 Anxiety disorder, unspecified; I10 Essential (primary) hypertension; E78.5 Hyperlipidemia, unspecified; F32.9 Major depressive disorder, single episode, unspecified; Y83.8 Other surgical procedures as the cause of abnormal reaction of the patient, or of later complication, without mention of misadventure at the time of the procedure | CPT/HCPCS: 97602 ==

== ENCOUNTER → 2017-04-16 | Outpatient (CLI) | payer OTHER | END | disposition home or self-care (01) | LOC: WOUND 14:23 | PROVIDERS: ATTEND Internal Medicine | DX: T81.31XD Disruption of external operation (surgical) wound, not elsewhere classified, subsequent encounter (principal); E11.69 Type 2 diabetes mellitus with other specified complication; C52 Malignant neoplasm of vagina; F41.9 Anxiety disorder, unspecified; I10 Essential (primary) hypertension; E78.5 Hyperlipidemia, unspecified; Z87.891 Personal history of nicotine dependence; E11.52 Type 2 diabetes mellitus with diabetic peripheral angiopathy with gangrene; F32.9 Major depressive disorder, single episode, unspecified; Y83.8 Other surgical procedures as the cause of abnormal reaction of the patient, or of later complication, without mention of misadventure at the time of the procedure | CPT/HCPCS: 11042 ==